=== PATIENT | female | born 1950 | race Two or more races ===

== ENCOUNTER 2017-03-19 07:06 | Outpatient (CLI) | payer OTHER ==
[2017-03-19] MEDS ORDERED: COZAAR100 MG PO (10:12)
[2017-03-19] MEDS ORDERED: PAXIL20 MG PO (10:13)
[2017-03-19] MEDS ORDERED: DEPAKOTE ER250 MG PO (10:13)
[2017-03-19] MEDS ORDERED: ABILIFY5 MG PO (10:13)
[2017-03-19] MEDS ORDERED: LIPITOR20 MG PO (10:14)
[2017-03-19] MEDS ORDERED: TRANXENE T-TAB7.5 MG PO (10:14)
[2017-03-19] MEDS ORDERED: FOSAMAX70 MG PO (10:14)
[2017-03-19] MEDS ORDERED: SYNTHROID50 MCG PO (10:15)
== END 2017-03-19 07:16 | disposition home or self-care (01) ==
LOC: RAD 07:06
DX: D68.8 Other specified coagulation defects (principal)

== ENCOUNTER 2017-03-23 07:11 | Day surgery (SDC) | payer OTHER ==
[~2017-03-23 07:11] MED LIST: ABILIFY5 MG PO; COZAAR100 MG PO; DEPAKOTE ER250 MG PO; FOSAMAX70 MG PO; LIPITOR20 MG PO; PAXIL20 MG PO; SYNTHROID50 MCG PO; TRANXENE T-TAB7.5 MG PO
== END 2017-03-23 14:47 | disposition home or self-care (01) ==
LOC: CIR.AMB 07:11
DX: M54.07 Panniculitis affecting regions of neck and back, lumbosacral region (principal); M54.06 Panniculitis affecting regions of neck and back, lumbar region